=== PATIENT | male | born 1945 | race Caucasian/White ===

== ENCOUNTER 2017-10-18 10:06 | Emergency (ER) | payer OTHER ==
[2017-10-18 10:24] VITALS: TEMP 97
--- NOTE | 2017-10-18 10:50 | RAD ---
Procedure: XR CHEST 1 VIEW Exam Date: 10/18/2017 10:13 AM CDT Ordering Provider: Hema Martinez Clinical Indication: vent pt, elev wbc and plt Comparison: None Findings: Tracheostomy tube tip at the level of the clavicles. There is a 1 cm nodular density in the left lower lung zone. No pleural effusion or pneumothorax. Heart size is within normal limits. No acute osseous abnormality. Impression: Tracheostomy tube tip in expected position. No acute pulmonary process. 1 cm left lower lobe pulmonary nodule. Correlate with previous imaging to document stability. If no prior imaging is available then consider further assessment with nonemergent but short-term CT chest. Electronically signed by: Pao Pulido MD 10/18/2017 10:49 AM CDT
--- NOTE | 2017-10-18 12:10 | ED.PDOC ---
History of Present Illness - General Chief Complaint: General Stated Complaint: abnormal lab values Time Seen by Provider: 10/18/17 10:12 Source: EMS notes reviewed, senior living records Exam Limitations: clinical condition - History of Present Illness Initial Comments: sent from [facility] for lab abn yesterday. wbc 36k and plt 900k. no new signs or symptoms. unable to communicate. termite control technician vent pt. Allergies/Adverse Reactions: Allergies NO KNOWN ALLERGY Allergy (Verified 10/18/17 10:24) Review of Systems - Review of Systems Review of Systems: 10/18/17 12:08 unable to obtain secondaryt o pt nursing home condition. Past Medical History (General) - Patient Medical History Hx Seizures: Yes Hx Stroke: Yes Hx Hypertension: Yes Hx Gastroesophageal Reflux: Yes - Vaccination History Hx Influenza Vaccination: - Unknown Hx Pneumococcal Vaccination: - Unknown - Social History Hx Alcohol Use: No - Activities of Daily Living [facility] (if applicable[facility] Family Medical History - Family History Mother Family History: Unknown Physical Exam - Physical Exam General Appearance: Alert, Comfortable, No apparent distress Eye Exam: bilateral normal - looks forward as normal apparently Ears, Nose, Throat: normal pharynx - mildly dry Neck: supple, other - trach in place Respiratory: lungs clear, normal breath sounds, no respiratory distress, no accessory muscle use Cardiovascular/Chest: normal peripheral pulses, no edema, other - reg rate Peripheral Pulses: radial,right: 2+, radial,left: 2+, dorsalis pedis,right: 2+, dorsalis pedis,left: 2+ Gastrointestinal/Abdominal: non tender, soft, other - gtube in place Rectal Exam: other - small less thatn 1cm stg 2 at sacrum Extremity: non-tender, no pedal edema, normal capillary refill, other - chronic contractures adn quadraplegic Neurologic: alert, normal mood/affect, other - chronic neuro changes only. Skin Exam: normal color Comments: Vital Signs - 24 hr 10/18/17 10:16 Temperature 97 F L Pulse Rate [ 88 pulse ox] Respiratory 20 Rate Blood Pressure 143/86 [Right Arm] O2 Sat by Pulse 100 Oximetry Progress - Results/Orders Results/Orders: cxr with lone pulmonary nodule. Laboratory Tests 10/18/17 10/18/17 10/18/17 10:18 10:33 10:33 WBC 11.6 H RBC 3.56 L Hgb 10.4 L Hct 31.2 L MCV 87.7 MCH 29.2 MCHC 33.4 RDW 15.1 H Plt Count 319 MPV 9.0 Absolute Neuts (auto) 8.80 H Absolute Lymphs (auto) 1.20 Absolute Monos (auto) 0.80 Absolute Eos (auto) 0.70 H Absolute Basos (auto) 0.10 Neutrophils % 75.6 Lymphocytes % 10.8 L Monocytes % 6.5 Eosinophils % 6.4 H Basophils % 0.7 PT INR PTT (SP) Sodium 138 Potassium 3.6 Chloride 102 Carbon Dioxide 29 Anion Gap 10.6 L BUN 12 Creatinine 0.45 L BUN/Creatinine Ratio 26.7 H Random Glucose 120 H Serum Osmolality 276.6 Lactic Acid Calcium 8.9 Total Bilirubin 0.5 AST 35 ALT 68 H Alkaline Phosphatase 138 H Creatine Kinase 29 L CK-MB (CK-2) 1.4 CK-MB (CK-2) % Not Reportable Troponin I < 0.02 Serum Total Protein 6.5 Albumin 2.8 L Globulin 3.7 H Albumin/Globulin Ratio 0.8 L Urine Color Urine Appearance Urine pH Ur Specific [facility] Urine Protein Urine Glucose (UA) Urine Ketones Urine Blood Urine Nitrite Urine Bilirubin Urine Urobilinogen Ur Leukocyte Esterase Urine RBC Urine WBC Ur Epithelial Cells Urine Bacteria Phenytoin < 2.5 L 10/18/17 10/18/17 10/18/17 10:33 10:33 10:40 WBC RBC Hgb Hct MCV MCH MCHC RDW Plt Count MPV Absolute Neuts (auto) Absolute Lymphs (auto) Absolute Monos (auto) Absolute Eos (auto) Absolute Basos (auto) Neutrophils % Lymphocytes % Monocytes % Eosinophils % Basophils % PT 13.0 H INR 1.120 PTT (SP) 32.1 Sodium Potassium Chloride Carbon Dioxide Anion Gap BUN Creatinine BUN/Creatinine Ratio Random Glucose Serum Osmolality Lactic Acid 1.4 Calcium Total Bilirubin AST ALT Alkaline Phosphatase Creatine Kinase CK-MB (CK-2) CK-MB (CK-2) % Troponin I Serum Total Protein Albumin Globulin Albumin/Globulin Ratio Urine Color Yellow Urine Appearance Sl cloudy Urine pH 7.0 Ur Specific [facility] 1.010 Urine Protein Negative Urine Glucose (UA) Negative Urine Ketones Negative Urine Blood Trace-intact H Urine Nitrite Negative Urine Bilirubin Negative Urine Urobilinogen 0.2 Ur Leukocyte Esterase Small H Urine RBC 3-5 H Urine WBC 3-5 H Ur Epithelial Cells 0 Urine Bacteria 1+ Phenytoin pt presents due to lab abnormality yesterday. labs ok today. no obvious source of infection and pt appears to be at his baseline. will go back to facility. needs follow up with pcp for his pulmonary nodule. i do not know if this is a new finding. does have a very small stg 2 sacral decub developing that needs following. Departure - Departure Clinical Impression: Abnormal laboratory test, Sacral decubitus ulcer, stage II Disposition: Discharge to SNF Condition: Fair Departure Forms: ED Discharge - Pt. Copy, Patient Portal Self Enrollment Diet: other Activity: increase activity as tolerated Referrals: MAKENZIE LUCAS [Primary Care Provider] - 1-5 Days Additional Instructions: pt presents due to lab abnormality yesterday. labs ok today. no obvious source of infection and pt appears to be at his baseline. will go back to facility. needs follow up with pcp for his pulmonary nodule. i do not know if this is a new finding. does have a very small stg 2 sacral decub developing that needs following.
[2017-10-18 12:49] VITALS: BP 129/86; O2SAT 98
== END 2017-10-18 12:48 ==
LOC: ER 10:06
DX: L89.152 Pressure ulcer of sacral region, stage 2 (principal); R79.89 Other specified abnormal findings of blood chemistry; I10 Essential (primary) hypertension; K21.9 Gastro-esophageal reflux disease without esophagitis; Z99.11 Dependence on respirator [ventilator] status; Z86.73 Personal history of transient ischemic attack (TIA), and cerebral infarction without residual deficits; D72.829 Elevated white blood cell count, unspecified; Z93.1 Gastrostomy status; R91.1 Solitary pulmonary nodule